=== PATIENT | male | born 1965 | race Caucasian/White ===

== ENCOUNTER 2018-06-17 10:09 | Observation (INO) ==
[2018-06-17] MEDS ORDERED: SODIUM CHLORIDE 0.9% 1,000 ML IV STA (11:02)
[2018-06-17] MEDS ORDERED: HYDROmorphone 2 MG/1 ML VIAL IV STA (11:02)
[2018-06-17] MEDS ORDERED: ONDANSETRON 4 MG/2 ML VIAL IV STA (11:02)
[2018-06-17 11:18] LABS: Basophils # 0.1 10*3/uL (0.0-0.2); Basophils % 0.3 % (0.0-0.8); Hematocrit 42.3 VOL% (42.0-52.0); Hemoglobin 13.9 GM/DL (14.0-18.0); Immature Granulocytes % 0.7 %; Immature Granulocytes Absolute 0.16 #; Lymphocytes # 1.9 10*3/uL (1.4-4.0); Lymphocytes % 8.7 % (21.2-54.2); Mean Corpuscular HGB Conc 32.9 GM/DL (32-36); Mean Corpuscular Hemoglobin 27 PG (27-34); Mean Corpuscular Volume 82.6 FL (87-102); Monocytes # 1.5 10*3/uL (0.11-0.8); Monocytes % 6.5 % (1.7-12.7); Neutrophils # 18.7 10*3/uL (1.4-7.4); Neutrophils % 83.8 % (38.7-73.9); Platelet Count 223 T/CUMM (130-400); Red Blood Count 5.12 MC/CUMM (3.8-5.5); Red Cell Distribution Width 14.1 % (9.3-17.3); White Blood Count 22.3 T/CUMM (4-12)
[2018-06-17 11:38] LABS: Hypochromasia 1+; Lymphocytes 13 % (20-55); Ovalocytes Slight; Platelet Estimate Adequate; Segmented Neutrophils 77 % (50-85); Total Cells Counted 100
[2018-06-17] MEDS ORDERED: LEVOFLOXACIN INJ 500 MG in PREMIX 1 EACH IV STA (11:43)
[2018-06-17] MEDS ORDERED: CLINDAMYCIN INJ 600 MG in PREMIX 1 EACH IV STA (11:43)
[2018-06-17 11:45] LABS: Albumin 3.8 G/DL (3.4-5.0); Bilirubin,Total 2.1 MG/DL (0.2-1.0); Calcium 8.7 MG/DL (8.5-10.1); Osmolality,Calculated 272.8 MOS/KG (273-304); Total Protein 7.3 G/DL (6.4-8.3)
[2018-06-17 12:11] LABS: Apearance,Urine CLEAR (Clear); Bilirubin,Urine Negative (Negative); Blood, Urine Negative (Negative); Glucose,Urine (UA) Negative (Negative); Ketones,Urine Negative (Negative); Nitrite,Urine Negative (Negative); Protein,Urine Negative; RBC,Urine 1 /HPF (0-4); Urine Color Yellow (Yellow); Urine Specific Gravity 1.032 (1.001-1.035); Urine Urobilinogen < 2.0 EU/DL (0.2-1.0); WBC,Urine 1 /HPF (0-6)
[2018-06-17] MEDS ORDERED: ACETAMINOPHEN 325 MG TABLET PO PRN (12:52)
[2018-06-17] MEDS ORDERED: KETOROLAC 15 MG/1 ML VIAL IV PRN (12:52)
[2018-06-17] MEDS: LACTATED RINGERS 1,000 ML IV SCH (15:11)
[2018-06-17] MEDS: metroNIDAZOLE INJ 500 MG in PREMIX 1 EACH IV SCH (15:12)
[2018-06-17] MEDS: PANTOPRAZOLE 40 MG TABLET PO SCH (15:12)
[2018-06-17] MEDS ORDERED: PNEUMOCOCCAL VACCINE (13 VALENT) 0.5 ML SYRINGE IM ONE (15:13)
[2018-06-17] MEDS: HYDROmorphone 2 MG/1 ML VIAL IV PRN ×3 (15:35→21:54)
[2018-06-18] MEDS: LACTATED RINGERS 1,000 ML IV SCH ×3 (00:46→18:04)
[2018-06-18] MEDS: ONDANSETRON 4 MG/2 ML VIAL IV PRN ×2 (01:12→15:58)
[2018-06-18] MEDS: metroNIDAZOLE INJ 500 MG in PREMIX 1 EACH IV SCH ×2 (01:15→09:29)
[2018-06-18 05:55] LABS: Basophils % 0.1 % (0.0-0.8); Hemoglobin 12.8 GM/DL (14.0-18.0); Immature Granulocytes % 0.5 %; Immature Granulocytes Absolute 0.07 #; Lymphocytes # 0.7 10*3/uL (1.4-4.0); Lymphocytes % 5.2 % (21.2-54.2); Mean Corpuscular Hemoglobin 27 PG (27-34); Mean Corpuscular Volume 85.5 FL (87-102); Mean Platelet Volume 11.2 FL (9.6-12.0); Monocytes # 0.7 10*3/uL (0.11-0.8); Monocytes % 5.1 % (1.7-12.7); Neutrophils # 12.3 10*3/uL (1.4-7.4); Neutrophils % 89.1 % (38.7-73.9); Platelet Count 127 T/CUMM (130-400); Red Blood Count 4.68 MC/CUMM (3.8-5.5); Red Cell Distribution Width 14.1 % (9.3-17.3); White Blood Count 13.8 T/CUMM (4-12)
[2018-06-18 06:21] LABS: Hypochromasia 1+; Microcytosis 1+
[2018-06-18 06:22] LABS: Ovalocytes Slight; Platelet Estimate Adequate
[2018-06-18 06:58] LABS: Albumin 3.2 G/DL (3.4-5.0); Bilirubin,Total 1.6 MG/DL (0.2-1.0); Calcium 8.1 MG/DL (8.5-10.1); Osmolality,Calculated 270.2 MOS/KG (273-304); Potassium 4.2 MMOL/L (3.5-5.1); Total Protein 6.8 G/DL (6.4-8.3)
[2018-06-18] MEDS ORDERED: MECLIZINE 25 MG TABLET PO PRN (07:13)
[2018-06-18] MEDS ORDERED: CIPROFLOXACIN INJ 400 MG in PREMIX 1 EACH IV SCH (09:00)
[2018-06-18] MEDS: CIPROFLOXACIN 500 MG TABLET PO SCH ×2 (09:26→20:59)
[2018-06-18] MEDS: ENOXAPARIN 40 MG/0.4 ML SYRINGE SUBCUT SCH (09:26)
[2018-06-18] MEDS: ASPIRIN EC 81 MG TABLET PO SCH (09:26)
[2018-06-18] MEDS: LOSARTAN 25 MG TABLET PO SCH (09:26)
[2018-06-18] MEDS: metroNIDAZOLE 500 MG TABLET PO SCH ×3 (09:26→20:59)
[2018-06-18] MEDS: PANTOPRAZOLE 40 MG TABLET PO SCH (09:26)
[2018-06-19] MEDS: metroNIDAZOLE 500 MG TABLET PO SCH ×2 (02:20→08:47)
[2018-06-19] MEDS: ONDANSETRON 4 MG/2 ML VIAL IV PRN (02:21)
[2018-06-19] MEDS: LACTATED RINGERS 1,000 ML IV SCH (02:27)
[2018-06-19 05:18] LABS: Basophils % 0.2 % (0.0-0.8); Eosinophils # 0.2 10*3/uL (0.0-0.87); Eosinophils % 1.8 % (0.00-10.9); Hematocrit 36.6 VOL% (42.0-52.0); Hemoglobin 11.8 GM/DL (14.0-18.0); Immature Granulocytes % 0.4 %; Immature Granulocytes Absolute 0.04 #; Lymphocytes # 1.5 10*3/uL (1.4-4.0); Lymphocytes % 16.2 % (21.2-54.2); Mean Corpuscular HGB Conc 32.2 GM/DL (32-36); Mean Corpuscular Hemoglobin 27 PG (27-34); Mean Corpuscular Volume 84.1 FL (87-102); Mean Platelet Volume 10.9 FL (9.6-12.0); Monocytes # 0.8 10*3/uL (0.11-0.8); Monocytes % 9.1 % (1.7-12.7); Neutrophils # 6.5 10*3/uL (1.4-7.4); Neutrophils % 72.3 % (38.7-73.9); Platelet Count 187 T/CUMM (130-400); Red Blood Count 4.35 MC/CUMM (3.8-5.5)
[2018-06-19 05:47] LABS: Calcium 8.3 MG/DL (8.5-10.1); Osmolality,Calculated 279.4 MOS/KG (273-304); Potassium 4.1 MMOL/L (3.5-5.1)
[2018-06-19 08:08] VITALS: BP 147/93
[2018-06-19] MEDS: ENOXAPARIN 40 MG/0.4 ML SYRINGE SUBCUT SCH (08:47)
[2018-06-19] MEDS: CIPROFLOXACIN 500 MG TABLET PO SCH (08:47)
[2018-06-19] MEDS: LOSARTAN 25 MG TABLET PO SCH (08:47)
[2018-06-19] MEDS: ASPIRIN EC 81 MG TABLET PO SCH (08:47)
[2018-06-19] MEDS: PANTOPRAZOLE 40 MG TABLET PO SCH (08:47)
== END 2018-06-19 09:33 | disposition home or self-care (01) ==
LOC: N.ED 10:09 → INTOOBSV 12:52 → N.2E 12:52
PROVIDERS: ADMIT Surgery; ATTEND Surgery